=== PATIENT | male | born 1945 | race Caucasian/White ===

== ENCOUNTER 2017-10-02 21:54 | Emergency (ER) | payer MEDICARE, OTHER ==
[2017-10-02] MEDS ORDERED: Sodium Chloride 0.9% 1,000 ML IV ONE (22:27)
[2017-10-02] MEDS ORDERED: Metoprolol Tartrate 5 MG/5 ML SDV IVPUSH ONE (22:34)
[2017-10-02] MEDS ORDERED: Aspirin 81 MG Tab.Chew PO ONE (22:39)
[2017-10-02 22:52] LABS: CHLORIDE,CL 99 mmol/L (98-107); SODIUM,NA 138 mmol/L (136-145)
--- NOTE | 2017-10-02 23:10 | EDM.PDOC ---
ED HPI GENERAL MEDICAL PROBLEM - General Chief Complaint: Neuro Symptoms/Deficits Stated Complaint: fall, left side paralysis Time Seen by Provider: 10/02/17 21:56 Source of Information: Reports: Patient, Family History Limitations: Reports: No Limitations - History of Present Illness INITIAL COMMENTS - FREE TEXT/NARRATIVE: Patient found to be down on cement floor in basement by . Was down approximately 24 hours. Unable to move left side of body. Denies pain. Alert and oriented appropriately. Denies other changes. No history of stroke. Denies any significant past medical history. Does say that his BP has run above normal when checked but denies that it was significantly elevated. - Related Data Allergies Allergy/AdvReac Type Severity Reaction Status Date / Time No Known Allergies Allergy Verified 10/02/17 22:51 Past Medical History Cardiovascular History: Reports: Hypertension Social & Family History - Family History Family Medical History: Unobtainable ( recalls that patient's mother had COPD and "chest problems" and was on oxygen. Father had diabetes.) - Tobacco Use Smoking Status *Q: Never Smoker - Alcohol Use Alcohol Use History: No - Recreational Drug Use Recreational Drug Use: No Drug Use in Last 12 Months: No - Living Situation & Occupation Living situation: Reports: Occupation: Employed ED ROS GENERAL - Review of Systems Review Of Systems: See Below Constitutional: Reports: No Symptoms HEENT: Reports: No Symptoms Respiratory: Reports: No Symptoms Cardiovascular: Reports: No Symptoms GI/Abdominal: Reports: No Symptoms : Reports: No Symptoms Musculoskeletal: Reports: No Symptoms Skin: Reports: No Symptoms Neurological: Reports: Numbness (left side), Paresthesia (left side), Difficulty Walking, Weakness (left limbs). Denies: Dizziness, Headache, Trouble Speaking Psychiatric: Reports: No Symptoms Hematologic/Lymphatic: Reports: No Symptoms ED EXAM, NEURO - Physical Exam Exam: See Below Exam Limited By: Physical Impairment General Appearance: Alert, WD/WN, No Apparent Distress Eye Exam: Bilateral Eye: EOMI, PERRL Ears: Normal External Exam, Normal Canal Nose: No Blood. No: Nasal Swelling, Nasal Drainage Throat/Mouth: Normal Voice, No Airway Compromise, Other (Poor dentition, dry lips) Head Exam: Atraumatic, Normocephalic Neck: Normal Inspection, Supple, Non-Tender. No: Lymphadenopathy (L), Lymphadenopathy (R) Respiratory/Chest: No Respiratory Distress, Lungs Clear, Normal Breath Sounds, No Accessory Muscle Use, Chest Non-Tender Cardiovascular: Normal Peripheral Pulses, Regular Rate, Rhythm, No Edema, No Murmur GI/Abdominal: Soft, Non-Tender (Male) Exam: Normal Inspection Rectal (Males) Exam: Deferred Neurological: Alert, Normal Mood/Affect, Other (minimal movement noted left upper and lower limbs, also noted to have significantly decreased sensation on that same side. 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 ) Back Exam: Normal Inspection Extremities: Non-Tender, No Pedal Edema, Normal Capillary Refill Psychiatric: Normal Affect, Normal Mood Skin Exam: Warm, Dry, Intact, Normal Color EKG INTERPRETATION EKG Date: 10/02/17 Time: 22:31 Rhythm: NSR Rate (Beats/Min): [address] [employer]: Normal P-Wave: Present QRS: Normal ST-T: Other (no acute ST depression/elevation noted.) QT: Normal Comparison: NA - No Prior EKG Course - Orders/Labs/Meds Orders: Active Orders 24 hr Category Date Time Status Head wo Cont [CT] Stat Exams 10/02/17 21:55 Taken CBC WITH AUTO DIFF [HEME] Routine Lab 10/02/17 22:15 Received CBC WITH AUTO DIFF [HEME] Stat Lab 10/02/17 22:21 Ordered CK W CKMB [CHEM] Stat Lab 10/02/17 22:20 Ordered COMPREHENSIVE METABOLIC PN,CMP [CHEM] Routine Lab 10/02/17 22:15 Received COMPREHENSIVE METABOLIC PN,CMP [CHEM] Stat Lab 10/02/17 22:21 Ordered D-DIMER QUANTITATIVE [COAG] Stat Lab 10/02/17 22:20 Ordered INR,PT,PROTHROMBIN TIME [COAG] Routine Lab 10/02/17 22:15 Received INR,PT,PROTHROMBIN TIME [COAG] Stat Lab 10/02/17 22:20 Ordered MG [MAGNESIUM] [CHEM] Stat Lab 10/02/17 22:21 Ordered PROLACTIN [REF] Stat Lab 10/02/17 22:21 Ordered PTT,PARTIAL THROMBOPLSTIN TIME [COAG] Routine Lab 10/02/17 22:15 Received PTT,PARTIAL THROMBOPLSTIN TIME [COAG] Stat Lab 10/02/17 22:21 Ordered TROPONIN I [CHEM] Stat Lab 10/02/17 22:20 Ordered - Radiology Interpretation CT Results Date: 10/02/17 CT Results Time: 22:41 (Hemorrhagic stroke noted, right side) - Re-Assessments/Exams Free Text/Narrative Re-Assessment/Exam: 10/02/17 23:28 CT confirmed presence of hemorrhagic stroke. Call placed to [facility]. Patient accepted by from Neurosurgery. At present, plan is for patient to be admitted to ICU and no immediate surgery planned. Patient remained stable while in ER. IV Metoprolol given to help improve BP. WBC elevated as was glucose. SQ insulin given. CK and CKMB elevated, however patient was lying on floor for 24 hours prior to presentation. DDimer also elevated. Stroke scale score remained 11. Transfer to [facility] arranged for continuation of care. Departure - Departure Time of Disposition: 23:32 Disposition: DC/Tfer to Acute Hospital 02 Condition: Fair Clinical Impression: Cerebral hemorrhage - Discharge Information - My Orders Last 24 Hours: My Active Orders 10/02/17 21:55 Head wo Cont [CT] Stat 10/02/17 22:15 CBC WITH AUTO DIFF [HEME] Routine COMPREHENSIVE METABOLIC PN,CMP [CHEM] Routine INR,PT,PROTHROMBIN TIME [COAG] Routine PTT,PARTIAL THROMBOPLSTIN TIME [COAG] Routine 10/02/17 22:20 CK W CKMB [CHEM] Stat D-DIMER QUANTITATIVE [COAG] Stat INR,PT,PROTHROMBIN TIME [COAG] Stat TROPONIN I [CHEM] Stat 10/02/17 22:21 CBC WITH AUTO DIFF [HEME] Stat COMPREHENSIVE METABOLIC PN,CMP [CHEM] Stat MG [MAGNESIUM] [CHEM] Stat PROLACTIN [REF] Stat PTT,PARTIAL THROMBOPLSTIN TIME [COAG] Stat - Assessment/Plan Last 24 Hours: My Active Orders 10/02/17 21:55 Head wo Cont [CT] Stat 10/02/17 22:15 CBC WITH AUTO DIFF [HEME] Routine COMPREHENSIVE METABOLIC PN,CMP [CHEM] Routine INR,PT,PROTHROMBIN TIME [COAG] Routine PTT,PARTIAL THROMBOPLSTIN TIME [COAG] Routine 10/02/17 22:20 CK W CKMB [CHEM] Stat D-DIMER QUANTITATIVE [COAG] Stat INR,PT,PROTHROMBIN TIME [COAG] Stat TROPONIN I [CHEM] Stat 10/02/17 22:21 CBC WITH AUTO DIFF [HEME] Stat COMPREHENSIVE METABOLIC PN,CMP [CHEM] Stat MG [MAGNESIUM] [CHEM] Stat PROLACTIN [REF] Stat PTT,PARTIAL THROMBOPLSTIN TIME [COAG] Stat
[2017-10-02] MEDS ORDERED: Insulin Regular, Human 100 Units/ML 3 ML Vial SUBCUT ONE (23:20)
== END 2017-10-02 23:45 ==
LOC: LL.ED 21:54
DX: I61.9 Nontraumatic intracerebral hemorrhage, unspecified (principal); I10 Essential (primary) hypertension
CPT/HCPCS: 36415; 51702; 70450; 80053; 82550; 82553; 83735; 84146; 84484; 85025; 85379; 85610; 85730; 93010; 96361; 96372; 96374; 99285; J1815; J7030; J3490

== ENCOUNTER 2017-10-10 23:19 | Emergency (ER) | payer MEDICARE, OTHER ==
[2017-10-10] MEDS ORDERED: hydrALAZINE 50 MG Tab PO ONE (23:51)
[2017-10-11] MEDS ORDERED: Metoprolol Succinate 50 MG Tab.ER PO ONE (00:06)
--- NOTE | 2017-10-11 00:19 | EDM.PDOC ---
ED HPI GENERAL MEDICAL PROBLEM - General Chief Complaint: General Stated Complaint: Hypertension Time Seen by Provider: 10/10/17 23:43 Source of Information: Reports: Patient, Other (alf) History Limitations: Reports: No Limitations - History of Present Illness INITIAL COMMENTS - FREE TEXT/NARRATIVE: Patient sent here due to persistent elevated BP readings from [facility]. He was released from [facility] in [place] for recent hemorrhagic stroke (seen at our ER prior to transfer to [facility] for treatment of stroke) and transferred to [facility] for continued care and rehab. Patient's BP approached 190 systolic at [facility] prior to them having EMS transfer patient here. Patient denies headache/neuro changes. [facility] noted no neuro status changes. No new complaints. Patient was not on any medications prior to stroke. He is now on 3 BP medications, including Metoprolol Succinate ER, Norvasc, and Lisinopril. Additionally they had him on PRN IV Hydralazine at [facility] due to his BP being difficult to control. Call placed to [facility]. Norvasc dose increased from 5 to 10mg daily this morning prior to discharge. Normal labs yesterday. ROS negative for any acute changes. Patient has persistent left sided hemiplegia from CVA. - Related Data Allergies Allergy/AdvReac Type Severity Reaction Status Date / Time No Known Allergies Allergy Verified 10/11/17 00:31 Home Meds: Home Meds Hydrochlorothiazide 25 mg PO DAILY #30 tablet 10/11/17 [Rx] Lisinopril 40 mg PO DAILY 10/11/17 [History] Metoprolol Succinate 100 mg PO DAILY #30 tab.er.24h 10/11/17 [Rx] amLODIPine [Norvasc] 10 mg PO DAILY 10/11/17 [History] atorvaSTATin [Lipitor] 10 mg PO 1800 10/11/17 [History] glipiZIDE [Glucotrol] 5 mg PO ACBREAKFAST 10/11/17 [History] levETIRAcetam [Keppra] 500 mg PO BID 10/11/17 [History] metFORMIN HCl [Metformin HCl] 1,000 mg PO BID 10/11/17 [History] Past Medical History Cardiovascular History: Reports: Hypertension Neurological History: Reports: CVA Other Neuro History: 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 L sided paralysis/weakness/L facial droop Social & Family History - Family History Family Medical History: Unobtainable - Tobacco Use Smoking Status *Q: Never Smoker - Recreational Drug Use Recreational Drug Use: No Drug Use in Last 12 Months: No - Living Situation & Occupation Living situation: Reports: Occupation: Employed ED ROS GENERAL - Review of Systems Review Of Systems: ROS reveals no pertinent complaints other than HPI. ED EXAM, GENERAL - Physical Exam Exam: See Below Exam Limited By: No Limitations General Appearance: Alert, WD/WN, No Apparent Distress Eye Exam: Bilateral Eye: EOMI, PERRL Ears: Normal External Exam, Normal Canal Nose: No: Nasal Drainage Throat/Mouth: Normal Lips, Normal Voice, No Airway Compromise Head: Atraumatic Neck: Supple, Non-Tender Respiratory/Chest: No Respiratory Distress, Lungs Clear, Normal Breath Sounds, No Accessory Muscle Use, Chest Non-Tender Cardiovascular: Regular Rate, Rhythm, No Edema, No Murmur Peripheral Pulses: 3+: Radial (L), Radial (R) GI/Abdominal: Normal Bowel Sounds, Soft, Non-Tender, No Distention (Male) Exam: Deferred Rectal (Males) Exam: Deferred Back Exam: No: CVA Tenderness (L), CVA Tenderness (R) Extremities: Non-Tender, No Pedal Edema, Normal Capillary Refill Neurological: Alert, Oriented, Sensory/Motor Deficit (Left sided weakness s/p CVA) Psychiatric: Normal Affect, Normal Mood Skin Exam: Warm, Dry, Intact, Normal Color Course - Vital Signs Last Recorded V/S: Last Vital Signs Temp 37.3 C 10/10/17 23:21 Pulse 73 10/11/17 02:04 Resp 16 10/11/17 02:04 BP 175/82 H 10/11/17 02:04 Pulse Ox 98 10/11/17 02:04 - Orders/Labs/Meds Labs: Laboratory Tests 10/11/17 10/11/17 10/11/17 Range/Units 00:25 00:25 00:45 WBC 13.9 H (4.0-10.2) K/uL RBC 4.55 (4.33-5.41) M/uL Hgb 13.4 D (13.1-16.8) g/dL Hct 38.6 L (39.0-49.0) % MCV 84.8 (84.0-98.0) fL MCH 29.5 (28.2-33.3) pg MCHC 34.7 (31.7-36.0) g/dL RDW 12.3 (11.2-14.1) % Plt Count 209 (150-350) K/uL Neut % (Auto) 82.1 H (45.0-80.0) % Lymph % (Auto) 8.5 L (10.0-50.0) % [place] % (Auto) 6.5 (2.0-14.0) % Eos % (Auto) 2.5 (0.0-5.0) % Baso % (Auto) 0.4 (0.0-2.0) % Neut # (Auto) 11.42 H (1.40-7.00) K/uL Lymph # (Auto) 1.18 (0.50-3.50) K/uL [place] # (Auto) 0.90 (0.00-1.00) K/uL Eos # (Auto) 0.35 (0.00-0.50) K/uL Baso # (Auto) 0.06 (0.00-0.20) K/uL Sodium 133 L (136-145) mmol/L Potassium 4.3 (3.5-5.1) mmol/L Chloride 100 (98-107) mmol/L Carbon Dioxide 24.0 (21.0-32.0) mmol/L BUN 18 (7-18) mg/dL Creatinine 0.59 (0.51-1.17) mg/dL Est Cr Clr Drug Dosing 120.34 mL/min Estimated GFR (MDRD) > 60 mL/min Glucose 182 H (74-106) mg/dL Calcium 8.5 (8.5-10.1) mg/dL Specimen Type Urinblad Urine Color Yellow Urine Appearance Clear Urine pH 7.5 (5.0-9.0) Ur Specific [place] 1.020 (1.005-1.030) Urine Protein Trace H (NEGATIVE) mg/dL Urine Glucose (UA) 500 H (NEGATIVE) mg/dL Urine Ketones 15 H (NEGATIVE) mg/dL Urine Occult Blood Negative (NEGATIVE) Urine Nitrite Negative (NEGATIVE) Urine Bilirubin Negative (NEGATIVE) Urine Urobilinogen 2.0 H (0.2-1.0) E.U./dL Ur Leukocyte Esterase Negative (NEGATIVE) Urine RBC Not seen /HPF Urine WBC 0-5 /HPF Ur Epithelial Cells Not seen /LPF Urine Bacteria Not seen (NONE TO FEW) /HPF Meds: Medications Discontinued Medications Generic Name Dose Route Start Last Admin Trade Name Cornel PRN Reason Stop Dose Admin Hydralazine HCl 25 mg 10/10/17 23:51 10/10/17 23:58 Apresoline PO 10/10/17 23:52 25 mg ONETIME ONE Administration Metoprolol Succinate 50 mg 10/11/17 00:06 10/11/17 00:13 Toprol Xl PO 10/11/17 00:07 50 mg ONETIME ONE Administration - Re-Assessments/Exams Free Text/Narrative Re-Assessment/Exam: 10/11/17 00:22 Call placed to [facility]. Review of patient's recent visit hospitalization at [facility] showed persistent elevated blood pressures despite multiple antihypertensives. Patient's pattern has been to elevate 170-180/80-90 in the evenings, including last night. , Hospitalist at [facility], was contacted and recommended adding additional Metoprolol and small dose HCTZ to regimen, as patient is maxed out on the two other antihypertensive medications. PO Hydralazine given, as well as additional dose Metoprolol Succinate. CBC/Chem repeated. WBC continues to be elevated at 13, however improved from last week when initially diagnosed with CVA. No new contributor to elevated WBC noted. Sodium mildly decreased. Glucose 182. UA requested. No evidence of UTI. Patient observed in the ER for BP response. It is anticipated that he will return to [facility] once BP has improved. The above recommended changes will be made. [facility] to [facility]. Departure - Departure Time of Disposition: 02:00 Disposition: DC/Tfer to [facility] 03 Clinical Impression: Hyponatremia, Cerebral hemorrhage Hypertension Qualifiers: Hypertension type: unspecified Qualified Code(s): I10 - Essential (primary) hypertension - Discharge Information Prescriptions: Hydrochlorothiazide 25 mg PO DAILY #30 tablet Metoprolol Succinate 100 mg PO DAILY #30 tab.er.24h Instructions: Hydralazine tablets, Metoprolol tablets Referrals: Luz Le PA [Primary Care Provider] - Forms: ED Department Discharge Additional Instructions: Per discussion with from [facility], we will increase Metoprolol to 100mg daily, and add 25mg of HCTZ daily. [facility] is to continue to observe blood pressures closely. Recommend BP checks TID at 8am, 2pm, and 8pm for now to watch for trends. Follow up with [facility] when they come in to round. Otherwise follow up as needed.
[2017-10-11 00:44] LABS: CHLORIDE,CL 100 mmol/L (98-107); SODIUM,NA 133 mmol/L (136-145)
== END 2017-10-11 02:15 ==
LOC: LL.ED 23:19
DX: I61.9 Nontraumatic intracerebral hemorrhage, unspecified (principal); I69.354 Hemiplegia and hemiparesis following cerebral infarction affecting left non-dominant side; I10 Essential (primary) hypertension; E87.1 Hypo-osmolality and hyponatremia; Z79.899 Other long term (current) drug therapy
CPT/HCPCS: 36415; 80048; 81001; 85025; 99285; A9270

== ENCOUNTER 2020-03-08 17:38 | Emergency (ER) | payer MEDICARE, OTHER ==
--- NOTE | 2020-03-08 18:41 | EDM.PDOC ---
ED HPI GENERAL MEDICAL PROBLEM - General Chief Complaint: General Stated Complaint: pain, fall Time Seen by Provider: 03/08/20 17:53 Source of Information: Reports: Patient History Limitations: Reports: No Limitations - History of Present Illness INITIAL COMMENTS - FREE TEXT/NARRATIVE: Patient fell onto left side and presents with left hip pain. Hx left sided weakness s/p 2017 hemorrhagic stroke. Brought by private vehicle. States that he was trying to get a kleenex off the end of the bed when he lost balance and fell. Denies hitting head. Only pain complaint is left hip area. Has numbness /neuropathic pain since stroke left arm/leg. Denies any acute pain left arm/ ribs. No neck pain. No headache. No other acute changes/injuries/complaints. Left Upper Leg Pain Score (Numeric/FACES): 7 - Related Data Allergies Allergy/AdvReac Type Severity Reaction Status Date / Time No Known Allergies Allergy Verified 03/08/20 17:40 Home Meds: Home Meds Hydrochlorothiazide 25 mg PO DAILY #30 tablet 10/11/17 [Rx] Lisinopril 20 mg PO DAILY 10/11/17 [History] Metoprolol Succinate 100 mg PO DAILY #30 tab.er.24h 10/11/17 [Rx] amLODIPine [Norvasc] 5 mg PO DAILY 10/11/17 [History] atorvaSTATin [Lipitor] 10 mg PO 1800 10/11/17 [History] glipiZIDE [Glucotrol] 5 mg PO ACBREAKFAST 10/11/17 [History] levETIRAcetam [Keppra] 500 mg PO BID 10/11/17 [History] metFORMIN HCl [Metformin HCl] 1,000 mg PO BID 10/11/17 [History] Past Medical History Cardiovascular History: Reports: Hypertension Neurological History: Reports: CVA Other Neuro History: 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 L sided paralysis/weakness/L facial droop Endocrine/Metabolic History: Reports: Diabetes, Type II Social & Family History - Family History Family Medical History: Unobtainable - Tobacco Use Smoking Status *Q: Never Smoker - Caffeine Use Caffeine Use: Reports: Soda - Living Situation & Occupation Living situation: Reports: Occupation: Employed ED ROS GENERAL - Review of Systems Review Of Systems: Comprehensive ROS is negative, except as noted in HPI. ED EXAM, GENERAL - Physical Exam Exam: See Below Exam Limited By: No Limitations General Appearance: Alert, WD/WN, No Apparent Distress Eye Exam: Bilateral Eye: Normal Inspection Ears: Hearing Grossly Normal Throat/Mouth: Normal Lips, Normal Voice, No Airway Compromise Head: Atraumatic, Normocephalic Neck: Supple, Non-Tender Respiratory/Chest: No Respiratory Distress, Lungs Clear, Normal Breath Sounds, No Accessory Muscle Use, Chest Non-Tender Cardiovascular: Regular Rate, Rhythm, No Edema, No Murmur GI/Abdominal: Normal Bowel Sounds, Soft, Non-Tender, No Distention (Male) Exam: Deferred Rectal (Males) Exam: Deferred Back Exam: No: Paraspinal Tenderness, Vertebral Tenderness Extremities: Normal Capillary Refill, Other (tenderness proximal femur. Pelvis stable/nontender. No other focal limb tenderness with palpation. ). No: Mottled, Pallor, Redness Neurological: Alert, Oriented, Normal Cognition, Other (left sided weakness( chronic)) Psychiatric: Normal Affect, Normal Mood Skin Exam: Warm, Dry, Intact, Normal Color Course - Vital Signs Last Recorded V/S: Last Vital Signs Temp 36.6 C 03/08/20 17:41 Pulse 72 03/08/20 17:41 Resp 20 03/08/20 17:41 BP 136/59 L 03/08/20 17:41 Pulse Ox 100 03/08/20 17:41 - Orders/Labs/Meds Orders: Active Orders 24 hr Category Date Time Status Hip Min 2V or 3V w Pelvis Lt [CR] Stat Exams 03/08/20 17:40 Taken - Re-Assessments/Exams Free Text/Narrative Re-Assessment/Exam: 03/08/20 18:42 Xray taken of left hip/pelvis confirmed femoral neck fracture. Call placed to [facility] and patient accepted for transfer by . Ortho will evaluate patient at [facility] and continue treatment. Patient declined pain medication. Departure - Departure Time of Disposition: 18:45 Disposition: DC/Tfer to Acute Hospital 02 Condition: Good Clinical Impression: Femur fracture, left Qualifiers: Encounter type: initial encounter Femur location: neck, unspecified portion Fracture type: closed Qualified Code(s): S72.002A - Fracture of unspecified part of neck of left femur, initial encounter for closed fracture - Discharge Information *PRESCRIPTION DRUG MONITORING PROGRAM REVIEWED*: Not Applicable *COPY OF PRESCRIPTION DRUG MONITORING REPORT IN PATIENT [place]: Not Applicable Referrals: PCP,None [Primary Care Provider] - Sepsis Event Note - Evaluation Sepsis Screening Result: No Definite Risk - Focused Exam Vital Signs: Vital Signs Temp Pulse Resp BP Pulse Ox 03/08/20 17:41 36.6 C 72 20 136/59 L 100 Date Exam was Performed: 03/08/20 Time Exam was Performed: 18:36 - My Orders Last 24 Hours: My Active Orders 03/08/20 17:40 Hip Min 2V or 3V w Pelvis Lt [CR] Stat - Assessment/Plan Last 24 Hours: My Active Orders 03/08/20 17:40 Hip Min 2V or 3V w Pelvis Lt [CR] Stat
== END 2020-03-08 19:15 ==
LOC: LL.ED 17:38
DX: S72.145A Nondisplaced intertrochanteric fracture of left femur, initial encounter for closed fracture (principal); I10 Essential (primary) hypertension; E11.9 Type 2 diabetes mellitus without complications; Z86.73 Personal history of transient ischemic attack (TIA), and cerebral infarction without residual deficits; Z79.84 Long term (current) use of oral hypoglycemic drugs; Z79.899 Other long term (current) drug therapy; W18.30XA Fall on same level, unspecified, initial encounter; Y92.009 Unspecified place in unspecified non-institutional (private) residence as the place of occurrence of the external cause
CPT/HCPCS: 99284; 99284-25

== ENCOUNTER 2020-03-14 13:08 | Inpatient (IN) | payer MEDICARE, OTHER ==
[2020-03-14] MEDS ORDERED: Ondansetron 4 MG Tab.DIS PO PRN (16:34)
[2020-03-14] MEDS ORDERED: Temazepam 15 MG Cap PO PRN (16:34)
[2020-03-14] MEDS ORDERED: Bisacodyl 5 MG Tab PO PRN (16:34)
--- NOTE | 2020-03-14 17:09 | PCM.HP.2 ---
H&P History of Present Illness - General Date of Service: 03/14/20 Admit Problem/Dx: Admission Diagnosis/Problem Admission Diagnosis/Problem Weakness Source of Information: Patient, Other ([facility] on 03/11/20 with additional transfer records from 03/14/20). No: Old Records (No [facility] records available) History Limitations: Reports: No Limitations - History of Present Illness Initial Comments - Free Text/Narative: The patient was brought to the swing bed by transport vehicle from [facility] in [place] for initiation of PT and OT secondary to recent left hip fracture, which did require an ORIF on 03/09/20. His postoperative course was complicated by postoperative anemia with 1 unit of packed red blood cells transfused on 03/11.. The patient denies any chest pain/pressure, heart flutter, dizziness, orthostasis, orthopnea, diaphoresis, paresthesias, recent decreased exercise tolerance, or any other anginal-type symptoms. No recent history of abdominal pain, heartburn, nausea, diarrhea, melena, gross hematochezia, or any food intolerance, including fatty foods, etc.. He denies any gross hematuria, colic, or other UTI symptoms. He does complain of some intermittent mild left hip pain while standing with no history of fall after his above surgery. His arthritis is otherwise stable. The patient also denies any recent fever, cough, wheezing, dyspnea, etc.. No history of recent headaches, visual changes, diplopia, change in mental status, or other change in neurological status with stable left hemiparesis. Onset of Symptoms: Reports: Sudden Symptom Onset Date: 03/08/20 Duration of Symptoms: Reports: Improving Location: Reports: Lower Extremity, Left. Denies: Head, Face, Neck, Chest, Abdomen, Back, Pelvis, Upper Extremity, Left, Upper Extremity, Right, Radiates to Quality: Reports: Ache, Same as Previous Episode Severity: Mild Improves with: Reports: Rest Worsens with: Reports: Movement Context: Reports: Trauma (Fall on with resulting hip fracture) Associated Symptoms: Reports: Weakness (Stable left sided). Denies: Confusion, Chest Pain, Cough, Diaphoresis, Fever/Chills, Headaches, Loss of Appetite, Malaise, Nausea/Vomiting, Rash, Seizure, Shortness of Breath, Syncope - Related Data Allergies/Adverse Reactions: Allergies Allergy/AdvReac Type Severity Reaction Status Date / Time No Known Allergies Allergy Verified 03/14/20 13:25 Home Medications: Home Meds amLODIPine [Norvasc] 5 mg PO DAILY 10/11/17 [History] atorvaSTATin [Lipitor] 10 mg PO 1800 10/11/17 [History] glipiZIDE [Glucotrol] 5 mg PO ACBREAKFAST 10/11/17 [History] levETIRAcetam [Keppra] 500 mg PO BID 10/11/17 [History] Acetaminophen 500 mg PO QID 03/14/20 [History] Lisinopril [Zestril] 10 mg PO BID 03/14/20 [History] Metoprolol Succinate 50 mg PO DAILY 03/14/20 [History] Multivitamin with Minerals [Multivitamins with Minerals] 1 each PO DAILY [History] Rivaroxaban [Xarelto] 10 mg PO DAILY 03/14/20 [History] Past Medical History HEENT History: Reports: Impaired Vision, Other (See Below). Denies: Allergic Rhinitis, Cataract, Glaucoma, Hard of Hearing, Macular Degeneration, Otitis Media, Retinal Detachment Other HEENT History: Patient wears reading glasses. Despite previous medical records he denies any previous left eye blindness after injury in [place]. Cardiovascular History: Reports: Aneurysm, High Cholesterol, Hypertension, PVD, Other (See Below). Denies: Afib, Arrhythmia, Blood Clots/VTE/DVT, CAD, Cardiomyopathy, Heart Failure, Heart Murmur, OK, Syncope Other Cardiovascular History: Possible cerebral aneurysm as below. Respiratory History: Reports: Intubation, Previous, Other (See Below). Denies: Asthma, Bronchitis, Recurrent, COPD, Intubation, Difficult, PE, Pneumothorax, Pulmonary Fibrosis, Sleep Apnea, TB Other Respiratory History: Benign bilateral pulmonary granulomas. Gastrointestinal History: Reports: GERD. Denies: Bowel Obstruction, Celiac Disease, Cholelithiasis, Chronic Constipation, Chronic Diarrhea, Colon Polyp, Fatty Liver, Fecal Incontinence, Gastritis, GI Bleed, Hepatitis, Hiatal Hernia, Irritable Bowel Syndrome, Jaundice, Pancreatitis, PUD Genitourinary History: Reports: BPH, Chronic Renal Insuffiency. Denies: Acute Renal Failure, Renal Calculus, Retention, Urinary, STD, Urinary Incontinence, UTI, Recurrent Musculoskeletal History: Reports: Arthritis, Fracture, Osteoarthritis, Other ( See Below). Denies: Amputation, Back Pain, Chronic, Gout, Neck Pain, Chronic, RA, SLE Other Musculoskeletal History: Proximal left femoral fracture on 03/08/20 requiring surgery as below. Neurological History: Reports: Cerebral Aneurysms, CVA, Seizure. 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 Source of cerebral bleed? Aneurysm. Recurrent falls. Psychiatric History: Denies: Abuse, Victim of, ADD, ADHD, Addiction, Anxiety, Dementia, Depression, Psych Hospitalization(s), PTSD, Suicide Attempt, Suicidal Ideation Endocrine/Metabolic History: Reports: Diabetes, Type II, Other (See Below). Denies: Diabetes, Type I, Diabetes Mellitus, Type 3c, Hypothyroidism, IDDM Other Endocrine/Metabolic History: Hyponatremia, hypoalbuminemia. Hematologic History: Reports: Anemia, Blood Transfusion(s), Other (See Below) Other Hematologic History: Postoperative anemia in February 2020 with 1 unit of packed red blood cells transfused on 03/11/20. Immunologic History: Reports: None. Denies: AIDS, SLE Oncologic (Cancer) History: Reports: None. Denies: Basal Cell Carcinoma, Colon , Hodgkin's Lymphoma, Leukemia, Lymphoma, Malignant Melanoma, Non-Hodgkin's Lymphoma, Prostate, Squamous Cell Carcinoma Dermatologic History: Reports: None. Denies: Eczema, Psoriasis - Infectious Disease History Infectious Disease History: Reports: Chicken Pox, Mumps, Shingles (Lower abdominal in 2018). Denies: C-Difficile, Measles, Meningitis, Mononucleosis, MRSA, Novel Coronavirus, Pertussis (Whooping Cough), Rheumatic Fever, Scarlet Fever, TB, VRE - Past Surgical History Head Surgeries/Procedures: Reports: None HEENT Surgical History: Reports: Oral Surgery, Other (See Below). Denies: Adenoidectomy, Cataract Surgery, Detached Retina, Eye Surgery, Myringotomy w Tube(s), Naso-Sinus Surgery, Tonsillectomy Other HEENT Surgeries/Procedures: Multiple teeth extractions Cardiovascular Surgical History: Reports: None. Denies: Varicose Respiratory Surgical History: Reports: None. Denies: Thoracentesis GI Surgical History: Reports: None. Denies: Appendectomy, Cholecystectomy, Colonoscopy, EGD, Hernia, Abdominal, Hernia, Inguinal, Hernia Repair/Other, Polypectomy Male Surgical History: Reports: Circumcision, Other (See Below). Denies: TURP-Transurethral Resection of Prostate, Vasectomy Other Male Surgeries/Procedures: Circumcision as an . Endocrine Surgical History: Reports: None. Denies: Thyroid Biopsy Neurological Surgical History: Reports: None. Denies: C-Spine, Discectomy, Laminectomy, Lumbar Spine, Sacral Spine, Spinal Fusion, Thoracic Spine, Vertebroplasty Musculoskeletal Surgical History: Reports: ORIF, Other (See Below). Denies: Arthroscopic Knee, Arthroscopic Procedure, Carpal Tunnel, Ganglion Cyst, Joint Replacement, Shoulder Replacement, Shoulder Surgery Other Musculoskeletal Surgeries/Procedures:: ORIF of the left hip on 03/09/20. Oncologic Surgical History: Reports: None Dermatological Surgical History: Reports: None - Past Imaging History Past Imaging History: Reports: CAT Scan (CT scan of the head on 11/01/17, 10/03/17 , and 10/02/17.), Swallow Study (10/24/17.), Ultrasound (Renal ultrasound on 03/11.) Social & Family History - Family History HEENT: Reports: None. Denies: Glaucoma, Macular Degeneration, Retinal Detachment Cardiac: Reports: None. Denies: Afib, Aneurysm, Arrhythmia, Blood Clots/VTE/DVT , CAD, Heart Failure, Heart Murmur, High Cholesterol, Hypertension, OK, PVD/COD , Syncope Respiratory: Reports: None, COPD, Other (See Below). Denies: Asthma, PE, Pneumothorax, Sleep Apnea Other Respiratory Family Hisory: Mother with fatal COPD at age 87 with history of tobacco use. GI: Reports: None. Denies: Cholelithiasis, Colon Polyps, GERD, GI bleed, Inflammatory Bowel Disease, Irritable Bowel Syndrome, PUD : Reports: None. Denies: Renal Calculus, Renal Disease/Insufficiency OBGYN: Reports: None Musculoskeletal: Reports: None. Denies: Arthritis, RA, SLE Neurological: Reports: Alzheimers Disease, Dementia, Other (See Below). Denies : Migraines, MS, Parkinson's, Seizure, TIA Other Neurological Family History: Father with organic brain syndrome. Psychiatric: Reports: None. Denies: Abuse, Victim of, ADD, ADHD, Anxiety, Depression, Psych Hospitalization(s), PTSD, Schizophrenia, Suicide Attempt Endocrine/Metabolic: Reports: Diabetes, type II, Other (See Below). Denies: Diabetes, Type I, Diabetes Mellitus, Type 3c, Hypothyroidism, IDDM Other Endocrine/Metabolic Family History: Father with diabetes mellitus. Hematologic: Reports: None. Denies: Anemia, Transfusion Reaction Immunologic: Reports: None. Denies: AIDS, HIV, SLE Dermatologic: Reports: None. Denies: Eczema, Psoriasis Oncologic: Reports: None. Denies: Colon, Hodgkin's Lymphoma, Leukemia, Lymphoma , Non-Hodgkin's Lymphoma, Prostate, Skin - Tobacco Use Smoking Status *Q: Never Smoker Tobacco Use Within Last Twelve Months: No Years of Tobacco use: 0 Used Tobacco, but Quit: No Smoking Cessation Information Provided To Patient: No Second Hand Smoke Exposure: No Source of Second Hand Smoke Exposure: smoked previously however stopped secondary to her COPD with no current tobacco smoke exposure Second Hand Smoke Education Provided: No - Caffeine Use Caffeine Use: Reports: Soda (1 soda per day). Denies: Coffee, Energy Drinks, Tea - Alcohol Use Alcohol Use History: No Days Per Week of Alcohol Use: 0 Number of Drinks Per Day: 0 Number of Drinks Per Day Comment: No previous DWIs, problems with alcohol abuse , etc. 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 Exam - Exam Exam: See Below - Exam Quality Assessment: DVT Prophylaxis (Current Xarelto). No: Supplemental Oxygen General: Alert, Oriented, Cooperative HEENT: Conjunctiva Clear, EACs Clear, EOMI, Hearing Intact, Mucosa Moist & [place] , Nares Patent, Normal Nasal Septum, Posterior Pharynx Clear, Pupils Equal, Pupils Reactive, TMs Clear, PERRLA. No: Glasses Neck: Supple, Trachea Midline, Carotid Bruit (Mild bilateral carotid bruits). No: Lymphadenopathy, Thyromegaly Lungs: Normal Respiratory Effort, Rales (Mild bilateral basilar). No: Rhonchi, Rub, Wheezing Cardiovascular: Regular Rate, Regular Rhythm, Normal S1, Normal S2. No: Systolic Murmur, Diastolic Murmur, Rubs, Gallop/S3, Gallop/S4 GI/Abdominal Exam: Normal Bowel Sounds, Soft, Non-Tender, No Organomegaly, No Distention, No Abnormal Bruit, No Mass, Pelvis Stable. No: Guarding (Male) Exam: Deferred Rectal (Males) Exam: Deferred Back Exam: Normal Inspection, Full Range of Motion. No: CVA Tenderness (L), CVA Tenderness (R), Muscle Spasm Extremities: Pedal Edema (+1 left-sided pedal edema), Leg Pain (Mild in left hip with no instability), Limited Range of Motion (Left hip secondary to recent surgery). No: Joint Swelling, Carlos's Sign Peripheral Pulses: 2+: Radial (L), Radial (R), Dorsalis Pedis (L), Dorsalis Pedis (R) Skin: Ecchymosis (Operative site), Wound, Incision (Healing well) Neurological: Other (Stable left-sided hemiparesis by patient history) Neuro Extensive - Mental Status: Alert, Oriented x3, Normal Mood/Affect, Normal Cognition Psychiatric: Alert, Normal Affect, Normal Mood. No: Agitated, Hallucinations, Withdrawal Symptoms - Problem List (1) Femur fracture, left SNOMED Code(s): 31000118, [id number] ICD Code: S72.92XA - UNSP FRACTURE OF LEFT FEMUR, INIT ENCNTR FOR CLOSED FRACTURE Status: Acute Priority: High Current Visit: Yes Onset Date: Problem Details: Note ORIF on 03/09/20 with patient admitted to swing bed for PT, OT, strengthening, etc.. Postoperative course complicated by anemia with blood transfusion on 03/11 as above. Qualifiers: Encounter type: initial encounter Femur location: neck, unspecified portion Fracture type: closed Qualified Code(s): S72.002A - Fracture of unspecified part of neck of left femur, initial encounter for closed fracture (2) Cerebral hemorrhage SNOMED Code(s): 059769681 ICD Code: I61.9 - NONTRAUMATIC INTRACEREBRAL HEMORRHAGE, UNSPECIFIED Status : Chronic Priority: Medium Current Visit: Yes Onset Date: 10/02/17 Problem Details: Stable left hemiparesis, dysphagia, etc. by patient history with no recent seizures, etc. (3) Hypertension SNOMED Code(s): 94207246 ICD Code: I10 - ESSENTIAL (PRIMARY) HYPERTENSION Status: Chronic Priority : Medium Current Visit: Yes Problem Details: Stable by history Qualifiers: Hypertension type: essential hypertension Qualified Code(s): I10 - Essential (primary) hypertension (4) Hyponatremia SNOMED Code(s): 93921817 ICD Code: E87.1 - HYPO-OSMOLALITY AND HYPONATREMIA Status: Acute Priority : Medium Current Visit: Yes Onset Date: ~03/11/20 Problem Details: Lab work in the a.m. (5) Renal insufficiency SNOMED Code(s): 946894374, 864426444 ICD Code: N28.9 - DISORDER OF KIDNEY AND URETER, UNSPECIFIED Status: Chronic Priority: Medium Current Visit: Yes Problem Details: Labs in the a.m. (6) Seizure disorder SNOMED Code(s): 206591489 ICD Code: G40.909 - EPILEPSY, UNSP, NOT INTRACTABLE, WITHOUT STATUS EPILEPTICUS Status: Chronic Priority: Medium Current Visit: Yes Problem Details: As above (7) Osteoarthritis SNOMED Code(s): 213977715 ICD Code: M19.90 - UNSPECIFIED OSTEOARTHRITIS, UNSPECIFIED SITE Status: Chronic Priority: Medium Current Visit: Yes Problem Details: Otherwise stable by history Qualifiers: Osteoarthritis location: multiple joints Osteoarthritis type: primary Qualified Code(s): M89.49 - Other hypertrophic osteoarthropathy, multiple sites (8) Peptic reflux disease SNOMED Code(s): 375423712 ICD Code: K21.9 - GASTRO-ESOPHAGEAL REFLUX DISEASE WITHOUT ESOPHAGITIS Status: Chronic Priority: Medium Current Visit: Yes Problem Details: Stable by history Problem List Initiated/Reviewed/Updated: Yes Orders Last 24hrs: Active Orders 24 hr Category Date Time Status Patient Status [ADT] Routine ADT 03/14/20 16:34 Ordered Blood Glucose Check, Bedside [RC] BIDAC Care 03/14/20 16:34 Ordered Communication Order [RC] ROUTINE Care 03/14/20 16:44 Ordered EKG Documentation Completion [RC] ASDIRECTED Care 03/15/20 05:11 Ordered May Shower [RC] ASDIRECTED Care 03/14/20 16:34 Ordered Oxygen Therapy [RC] ASDIRECTED Care 03/14/20 16:46 Ordered Oxygen Therapy [RC] PRN Care 03/14/20 16:34 Ordered Pulse Oximetry [RC] ASDIRECTED Care 03/14/20 16:46 Ordered Up With Assistance [RC] ASDIRECTED Care 03/14/20 16:34 Ordered VTE/DVT Education [RC] PER UNIT ROUTINE Care 03/14/20 16:34 Ordered Vital Signs [RC] PER UNIT ROUTINE Care 03/14/20 16:34 Ordered Consult to Case Management/Aerodynamics Teacher [CONS] Cons 03/14/20 16:34 Ordered Routine OT Evaluation and Treatment [CONS] Routine Cons 03/14/20 16:34 Ordered PT Evaluation and Treatment [CONS] Routine Cons 03/14/20 16:34 Ordered [place] [employer] Diet [DIET] Diet 03/14/20 Dinner Ordered Chest 2V [CR] Routine Exams 03/15/20 05:11 Ordered CBC WITH AUTO DIFF [HEME] Routine Lab 03/15/20 05:11 Ordered COMPREHENSIVE METABOLIC PN,CMP [CHEM] Routine Lab 03/15/20 05:11 Ordered GLYCOSYLATED HEMOGLOBIN,HGBA1C [CHEM] Routine Lab 03/15/20 05:11 Ordered INR,PT,PROTHROMBIN TIME [COAG] Routine Lab 03/15/20 05:11 Ordered MAGNESIUM [CHEM] Routine Lab 03/15/20 05:11 Ordered PTT,PARTIAL THROMBOPLSTIN TIME [COAG] Routine Lab 03/15/20 05:11 Ordered TSH ULTRASENSITIVE [CHEM] Routine Lab 03/15/20 05:11 Ordered URIC ACID [CHEM] Routine Lab 03/15/20 05:11 Ordered VITAMIN B12 [CHEM] Routine Lab 03/15/20 05:11 Ordered Acetaminophen [Tylenol Extra Strength] Med 03/14/20 20:00 Ordered 500 mg PO QID Metoprolol Succinate [Toprol XL] Med 03/15/20 08:00 Ordered 50 mg PO DAILY Multivitamin with Minerals [Multivitamins with Minerals Med 03/15/20 08:00 Ordered ] 1 each PO DAILY Ondansetron [Zofran ODT] Med 03/14/20 16:34 Ordered 4 mg PO Q6H PRN Rivaroxaban [Xarelto] Med 03/15/20 08:00 Ordered 10 mg PO DAILY Temazepam [Restoril] Med 03/14/20 16:34 Ordered 15 mg PO BEDTIME PRN amLODIPine [Norvasc] Med 03/15/20 08:00 Ordered 5 mg PO DAILY atorvaSTATin [Lipitor] Med 03/14/20 18:00 Ordered 10 mg PO 1800 bisacodyL [Dulcolax] Med 03/14/20 16:34 Ordered 5 mg PO DAILY PRN glipiZIDE [Glucotrol] Med 03/15/20 07:30 Ordered 5 mg PO ACBREAKFAST levETIRAcetam [Keppra] Med 03/14/20 18:00 Ordered 500 mg PO BID lisinopriL [Prinivil] Med 03/14/20 18:00 Ordered 10 mg PO BID Obtain Past Medical Record [OM.PC] Routine Oth 03/14/20 16:46 Ordered Patient May [OM.PC] Click To Edit Oth 03/14/20 16:34 Ordered Resuscitation Status Routine Resus Stat 03/14/20 16:34 Ordered EKG 12 Lead [EK] Routine Ther 03/15/20 05:11 Ordered Medication Orders Acetaminophen (Tylenol Extra Strength) 500 mg PO QID DRAGAN Amlodipine Besylate (Norvasc) 5 mg PO DAILY DRAGAN Atorvastatin Calcium (Lipitor) 10 mg PO DAILY@1800 DRAGAN Bisacodyl (Dulcolax) 5 mg PO DAILY PRN PRN Reason: Constipation Glipizide (Glucotrol) 5 mg PO ACBREAKFAST DRAGAN Levetiracetam (Keppra) 500 mg PO BID DRAGAN Lisinopril (Prinivil) 10 mg PO BID DRAGAN Metoprolol Succinate (Toprol Xl) 50 mg PO DAILY DRAGAN Multivitamins/Minerals/Vitamin C (Tab-A-Varun) 1 tab PO DAILY DRAGAN Ondansetron HCl (Zofran Odt) 4 mg PO Q6H PRN PRN Reason: Nausea/Vomiting Rivaroxaban (Xarelto) 10 mg PO DAILY DRAGAN Temazepam (Restoril) 15 mg PO BEDTIME PRN PRN Reason: Sleep Assessment/Plan Comment:: As above. Extensive precautions were given to the patient, who is in agreement with the treatment plan. PT and OT have been ordered with continued swing bed care until the patient will be released to home on home health per their instructions. Update blood work, EKG, and chest x-ray in the a.m. - Mortality Measure Prognosis:: Good
[2020-03-14] MEDS: Lisinopril 20 MG Tab PO SCH (18:18)
[2020-03-14] MEDS: atorvaSTATin 10 MG Tab PO SCH (18:18)
[2020-03-14] MEDS: levETIRAcetam 500 MG Tab PO SCH (18:18)
[2020-03-14] MEDS: Acetaminophen 500 MG Tab PO SCH (19:57)
[2020-03-15] MEDS: levETIRAcetam 500 MG Tab PO SCH ×2 (07:35→17:23)
[2020-03-15] MEDS: Metoprolol Succinate 50 MG Tab.ER PO SCH (07:35)
[2020-03-15] MEDS: Multivitamin Tab PO SCH (07:35)
[2020-03-15] MEDS: glipiZIDE 5 MG Tab PO SCH (07:36)
[2020-03-15] MEDS: Lisinopril 20 MG Tab PO SCH ×2 (07:36→17:23)
[2020-03-15] MEDS: amLODIPine 5 MG Tab PO SCH (07:36)
[2020-03-15] MEDS: Acetaminophen 500 MG Tab PO SCH ×4 (07:37→20:36)
[2020-03-15 07:42] LABS: HEMOGLOBIN A1C 5.4 % (4.3-5.7)
[2020-03-15 07:56] LABS: PTT,PARTIAL THROMBOPLSTIN TIME 25.7 SEC (24.5-32.8)
--- NOTE | 2020-03-15 09:23 | PCM.SN ---
- Free Text/Narrative Note: Review of patient's EKG, chest x-ray, and blood work this morning. Blood work shows a stable decreased hemoglobin of 8.4 with other pertinent findings including a BUN of 32, creatinine 1.48, calcium 8.2, total protein of 5.9, and albumin of 2.6. Vitamin B-12 and TSH are normal. Chest x-ray, portable, shows evidence of a moderately elevated right hemidiaphragm with additional moderate COPD changes but no pneumothorax, pulmonary infiltrates, cardiomegaly or CHF. Possible mild pulmonary hypertension. EKG showed no evidence of acute ischemic changes with mild sinus bradycardia 54 , AL interval of 0.18 seconds, QRS interval of 0.09 seconds with mild biphasic P waves. A neutral cardiac axis was present. Nonspecific repolarization changes. TeleHealth - TeleHealth Patient Service Facility: [facility] Informed Consent: Telemedicine Audio/Visual Informed Consent: The risks, benefits, and alternatives to the telehealth visit were explained to the patient and the patient consented to this modality of care. The telehealth visit was carried out via a secure, web-based conferencing system. This telemedicine service was a real-time, two-way interactive video and communication between the patient and the provider. All the parties involved were identified and approved by the patient prior to the visit. Any physical exam was assisted by the patient. Unless noted otherwise, the provider was located at their usual clinic location , and the patient was at their place of residence. Patient identity was confirmed by having the patient state their name and date of . All communications with the patient (verbal, audiovisual, and written) were documented in the patients medical record per documentation standards.
[2020-03-15] MEDS: Rivaroxaban 10 MG Tab PO SCH (09:52)
[2020-03-15] MEDS: Ferrous Sulfate 325 MG Tab PO SCH ×2 (09:52→17:23)
[2020-03-15] MEDS: atorvaSTATin 10 MG Tab PO SCH (17:23)
[2020-03-16] MEDS: glipiZIDE 5 MG Tab PO SCH (08:13)
[2020-03-16] MEDS: Metoprolol Succinate 50 MG Tab.ER PO SCH (08:14)
[2020-03-16] MEDS: Multivitamin Tab PO SCH (08:14)
[2020-03-16] MEDS: levETIRAcetam 500 MG Tab PO SCH ×2 (08:14→17:54)
[2020-03-16] MEDS: Lisinopril 20 MG Tab PO SCH ×2 (08:14→17:55)
[2020-03-16] MEDS: amLODIPine 5 MG Tab PO SCH (08:15)
[2020-03-16] MEDS: Rivaroxaban 10 MG Tab PO SCH (08:15)
[2020-03-16] MEDS: Ferrous Sulfate 325 MG Tab PO SCH ×2 (08:15→17:54)
[2020-03-16] MEDS: Acetaminophen 500 MG Tab PO SCH (08:15)
[2020-03-16] MEDS ORDERED: Acetaminophen 325 MG Tab PO PRN (09:00)
[2020-03-16] MEDS: atorvaSTATin 10 MG Tab PO SCH (17:55)
[2020-03-17] MEDS: Lisinopril 20 MG Tab PO SCH ×2 (07:56→17:18)
[2020-03-17] MEDS: glipiZIDE 5 MG Tab PO SCH (07:56)
[2020-03-17] MEDS: Multivitamin Tab PO SCH (07:57)
[2020-03-17] MEDS: Metoprolol Succinate 50 MG Tab.ER PO SCH (07:58)
[2020-03-17] MEDS: levETIRAcetam 500 MG Tab PO SCH ×2 (07:58→17:18)
[2020-03-17] MEDS: amLODIPine 5 MG Tab PO SCH (07:59)
[2020-03-17] MEDS: Ferrous Sulfate 325 MG Tab PO SCH ×2 (07:59→17:17)
[2020-03-17] MEDS: Rivaroxaban 10 MG Tab PO SCH (08:00)
[2020-03-17] MEDS: atorvaSTATin 10 MG Tab PO SCH (17:19)
[2020-03-18] MEDS: Multivitamin Tab PO SCH (07:45)
[2020-03-18] MEDS: glipiZIDE 5 MG Tab PO SCH (07:45)
[2020-03-18] MEDS: levETIRAcetam 500 MG Tab PO SCH ×2 (07:46→17:29)
[2020-03-18] MEDS: Lisinopril 20 MG Tab PO SCH ×2 (07:46→17:26)
[2020-03-18] MEDS: Metoprolol Succinate 50 MG Tab.ER PO SCH (07:46)
[2020-03-18] MEDS: Ferrous Sulfate 325 MG Tab PO SCH ×2 (07:47→17:29)
[2020-03-18] MEDS: amLODIPine 5 MG Tab PO SCH (07:47)
[2020-03-18] MEDS: Rivaroxaban 10 MG Tab PO SCH (07:47)
[2020-03-18] MEDS: atorvaSTATin 10 MG Tab PO SCH (17:29)
[2020-03-19] MEDS: glipiZIDE 5 MG Tab PO SCH (08:17)
[2020-03-19] MEDS: Ferrous Sulfate 325 MG Tab PO SCH ×2 (08:17→17:26)
[2020-03-19] MEDS: Rivaroxaban 10 MG Tab PO SCH (08:17)
[2020-03-19] MEDS: Lisinopril 20 MG Tab PO SCH ×2 (08:17→17:27)
[2020-03-19] MEDS: Metoprolol Succinate 50 MG Tab.ER PO SCH (08:17)
[2020-03-19] MEDS: amLODIPine 5 MG Tab PO SCH (08:18)
[2020-03-19] MEDS: Multivitamin Tab PO SCH (08:18)
[2020-03-19] MEDS: levETIRAcetam 500 MG Tab PO SCH ×2 (08:18→17:26)
[2020-03-19] MEDS: atorvaSTATin 10 MG Tab PO SCH (17:27)
[2020-03-20] MEDS: Metoprolol Succinate 50 MG Tab.ER PO SCH (08:28)
[2020-03-20] MEDS: glipiZIDE 5 MG Tab PO SCH (08:28)
[2020-03-20] MEDS: Ferrous Sulfate 325 MG Tab PO SCH ×2 (08:29→17:15)
[2020-03-20] MEDS: Rivaroxaban 10 MG Tab PO SCH (08:29)
[2020-03-20] MEDS: Multivitamin Tab PO SCH (08:29)
[2020-03-20] MEDS: levETIRAcetam 500 MG Tab PO SCH ×2 (08:29→17:15)
[2020-03-20] MEDS: amLODIPine 5 MG Tab PO SCH (08:29)
[2020-03-20] MEDS: Lisinopril 20 MG Tab PO SCH ×2 (08:30→17:15)
[2020-03-20] MEDS: atorvaSTATin 10 MG Tab PO SCH (17:15)
[2020-03-21] MEDS: amLODIPine 5 MG Tab PO SCH (08:19)
[2020-03-21] MEDS: Ferrous Sulfate 325 MG Tab PO SCH ×2 (08:19→18:07)
[2020-03-21] MEDS: Rivaroxaban 10 MG Tab PO SCH (08:19)
[2020-03-21] MEDS: Multivitamin Tab PO SCH (08:20)
[2020-03-21] MEDS: Metoprolol Succinate 50 MG Tab.ER PO SCH (08:20)
[2020-03-21] MEDS: glipiZIDE 5 MG Tab PO SCH (08:20)
[2020-03-21] MEDS: levETIRAcetam 500 MG Tab PO SCH ×2 (08:21→18:07)
[2020-03-21] MEDS: Lisinopril 20 MG Tab PO SCH ×2 (08:21→18:07)
[2020-03-21] MEDS: atorvaSTATin 10 MG Tab PO SCH (18:07)
[2020-03-22] MEDS: glipiZIDE 5 MG Tab PO SCH (08:50)
[2020-03-22] MEDS: Multivitamin Tab PO SCH (08:50)
[2020-03-22] MEDS: levETIRAcetam 500 MG Tab PO SCH ×2 (08:50→17:32)
[2020-03-22] MEDS: Ferrous Sulfate 325 MG Tab PO SCH ×2 (08:50→17:32)
[2020-03-22] MEDS: Rivaroxaban 10 MG Tab PO SCH (08:50)
[2020-03-22] MEDS: amLODIPine 5 MG Tab PO SCH (09:19)
[2020-03-22] MEDS: Lisinopril 20 MG Tab PO SCH ×2 (09:19→18:10)
[2020-03-22] MEDS: Metoprolol Succinate 50 MG Tab.ER PO SCH (09:20)
[2020-03-22] MEDS: atorvaSTATin 10 MG Tab PO SCH (17:32)
[2020-03-23] MEDS: levETIRAcetam 500 MG Tab PO SCH ×2 (08:25→17:47)
[2020-03-23] MEDS: Multivitamin Tab PO SCH (08:25)
[2020-03-23] MEDS: amLODIPine 5 MG Tab PO SCH (08:25)
[2020-03-23] MEDS: Rivaroxaban 10 MG Tab PO SCH (08:25)
[2020-03-23] MEDS: Lisinopril 20 MG Tab PO SCH ×2 (08:25→17:48)
[2020-03-23] MEDS: glipiZIDE 5 MG Tab PO SCH (08:25)
[2020-03-23] MEDS: Metoprolol Succinate 50 MG Tab.ER PO SCH (08:25)
[2020-03-23] MEDS: Ferrous Sulfate 325 MG Tab PO SCH ×2 (08:26→17:47)
[2020-03-23] MEDS: atorvaSTATin 10 MG Tab PO SCH (17:47)
[2020-03-24] MEDS: glipiZIDE 5 MG Tab PO SCH (07:41)
[2020-03-24] MEDS: Metoprolol Succinate 50 MG Tab.ER PO SCH (07:41)
[2020-03-24] MEDS: Lisinopril 20 MG Tab PO SCH ×2 (07:41→17:23)
[2020-03-24] MEDS: Multivitamin Tab PO SCH (07:42)
[2020-03-24] MEDS: levETIRAcetam 500 MG Tab PO SCH ×2 (07:42→17:23)
[2020-03-24] MEDS: amLODIPine 5 MG Tab PO SCH (07:42)
[2020-03-24] MEDS: Ferrous Sulfate 325 MG Tab PO SCH ×2 (07:42→17:23)
[2020-03-24] MEDS: Rivaroxaban 10 MG Tab PO SCH (07:42)
[2020-03-24] MEDS: atorvaSTATin 10 MG Tab PO SCH (17:22)
[2020-03-25] MEDS: glipiZIDE 5 MG Tab PO SCH (09:11)
[2020-03-25] MEDS: levETIRAcetam 500 MG Tab PO SCH ×2 (09:11→17:12)
[2020-03-25] MEDS: amLODIPine 5 MG Tab PO SCH (09:12)
[2020-03-25] MEDS: Multivitamin Tab PO SCH (09:12)
[2020-03-25] MEDS: Lisinopril 20 MG Tab PO SCH ×2 (09:15→17:12)
[2020-03-25] MEDS: Metoprolol Succinate 50 MG Tab.ER PO SCH (09:15)
[2020-03-25] MEDS: Ferrous Sulfate 325 MG Tab PO SCH ×2 (09:16→17:12)
[2020-03-25] MEDS: Rivaroxaban 10 MG Tab PO SCH (09:16)
[2020-03-25] MEDS: atorvaSTATin 10 MG Tab PO SCH (17:12)
[2020-03-26] MEDS: levETIRAcetam 500 MG Tab PO SCH ×2 (07:45→17:34)
[2020-03-26] MEDS: glipiZIDE 5 MG Tab PO SCH (07:45)
[2020-03-26] MEDS: Metoprolol Succinate 50 MG Tab.ER PO SCH (07:45)
[2020-03-26] MEDS: Multivitamin Tab PO SCH (07:45)
[2020-03-26] MEDS: Rivaroxaban 10 MG Tab PO SCH (07:45)
[2020-03-26] MEDS: Ferrous Sulfate 325 MG Tab PO SCH ×2 (07:45→17:34)
[2020-03-26] MEDS: amLODIPine 5 MG Tab PO SCH (07:46)
[2020-03-26] MEDS: Lisinopril 20 MG Tab PO SCH ×2 (07:46→17:35)
[2020-03-26] MEDS: atorvaSTATin 10 MG Tab PO SCH (17:34)
[2020-03-27] MEDS: levETIRAcetam 500 MG Tab PO SCH ×2 (07:25→17:25)
[2020-03-27] MEDS: Metoprolol Succinate 50 MG Tab.ER PO SCH (07:25)
[2020-03-27] MEDS: amLODIPine 5 MG Tab PO SCH (07:25)
[2020-03-27] MEDS: Rivaroxaban 10 MG Tab PO SCH (07:26)
[2020-03-27] MEDS: Ferrous Sulfate 325 MG Tab PO SCH ×2 (07:26→17:26)
[2020-03-27] MEDS: glipiZIDE 5 MG Tab PO SCH (07:26)
[2020-03-27] MEDS: Lisinopril 20 MG Tab PO SCH (07:26)
[2020-03-27] MEDS: Multivitamin Tab PO SCH (07:26)
--- NOTE | 2020-03-27 12:58 | PCM.PN ---
- General Info Date of Service: 03/27/20 Admission Dx/Problem (Free Text): Admission Diagnosis/Problem Admission Diagnosis/Problem Weakness Functional Status: Reports: Pain Controlled, Tolerating Diet, Ambulating (With assistance), Urinating, Incentive Spirometry. Denies: New Symptoms Pain Score: 0 - Review of Systems General: Reports: Weakness (Stable left hemiparesis). Denies: Fever, Fatigue, Malaise, Chills, Night Sweats, Appetite (Good) HEENT: Reports: Other ([place]) Pulmonary: Reports: No Symptoms. Denies: Shortness of Breath, Pleuritic Chest Pain, Cough, Sputum, Hemoptysis, Wheezing Cardiovascular: Reports: No Symptoms. Denies: Chest Pain, Palpitations, Dyspnea on Exertion, Orthopnea, Edema, Lightheadedness Gastrointestinal: Reports: No Symptoms. Denies: Abdominal Pain, Constipation, Decreased Appetite, Diarrhea, Difficulty Swallowing, Flatus, Hematochezia, Melena, Nausea, Vomiting Genitourinary: Reports: No Symptoms. Denies: Dysuria, Frequency, Burning, Pain , Urgency, Hematuria, Flank Pain Musculoskeletal: Reports: Leg Pain (Borderline). Denies: Neck Pain, Shoulder Pain, Arm Pain, Hand Pain, Back Pain, Foot Pain, Joint Pain, Joint Swelling Skin: Reports: No Symptoms. Denies: Diaphoresis, Bruising Neurological: Reports: Pre-Existing Deficit (Stable left hemiparesis), Difficulty Walking, Weakness (As above). Denies: Confusion, Seizure, Trouble Speaking Psychiatric: Reports: No Symptoms. Denies: Confusion, Depression, Anxiety, Agitation, Cravings, Hallucinations - Patient Data Vitals - Most Recent: Last Vital Signs Temp 36.5 C 03/27/20 08:00 Pulse 54 L 03/27/20 08:00 Resp 16 03/27/20 08:00 BP 129/61 03/27/20 08:00 Pulse Ox 100 03/27/20 08:00 Weight - Most Recent: 66.361 kg I&O - Last 24 Hours: Intake & Output 03/26/20 03/27/20 03/27/20 22:59 06:59 14:59 Intake Total 240 240 Balance 240 240 Lab Results Last 24 Hours: Laboratory Results - last 24 hr 03/27/20 03/27/20 Range/Units 07:05 07:05 WBC 5.3 (4.0-10.2) K/uL RBC 2.94 L (4.33-5.41) M/uL Hgb 8.6 L (13.1-16.8) g/dL Hct 27.6 L (39.0-49.0) % MCV 93.9 D (84.0-98.0) fL MCH 29.3 (28.2-33.3) pg MCHC 31.2 L (31.7-36.0) g/dL RDW 12.8 (11.2-14.1) % Plt Count 331 D (150-350) K/uL Neut % (Auto) 53.3 (45.0-80.0) % Lymph % (Auto) 26.4 (10.0-50.0) % [place] % (Auto) 7.5 (2.0-14.0) % Eos % (Auto) 10.9 H (0.0-5.0) % Baso % (Auto) 1.9 (0.0-2.0) % Neut # (Auto) 2.82 (1.40-7.00) K/uL Lymph # (Auto) 1.40 (0.50-3.50) K/uL [place] # (Auto) 0.40 (0.00-1.00) K/uL Eos # (Auto) 0.58 H (0.00-0.50) K/uL Baso # (Auto) 0.10 (0.00-0.20) K/uL Sodium 141 (136-145) mmol/L Potassium 5.1 (3.5-5.1) mmol/L Chloride 109 H (98-107) mmol/L Carbon Dioxide 23.4 (21.0-32.0) mmol/L BUN 60 H D (7-18) mg/dL Creatinine 1.71 H (0.51-1.17) mg/dL Est Cr Clr Drug Dosing 36.11 mL/min Estimated GFR (MDRD) 39 mL/min Glucose 92 (74-106) mg/dL Calcium 8.7 (8.5-10.1) mg/dL Total Bilirubin 0.3 (0.2-1.0) mg/dL AST 22 (15-37) U/L ALT 22 (12-78) U/L Alkaline Phosphatase 111 (46-116) IU/L Total Protein 6.4 (6.4-8.2) g/dL Albumin 3.0 L (3.4-5.0) g/dL Med Orders - Current: Current Medications Acetaminophen (Tylenol) 650 mg PO Q4H PRN PRN Reason: Pain Amlodipine Besylate (Norvasc) 5 mg PO DAILY [facility] Last Admin: 03/27/20 07:25 Dose: 5 mg Atorvastatin Calcium (Lipitor) 10 mg PO DAILY@1800 [facility] Last Admin: 03/26/20 17:34 Dose: 10 mg Bisacodyl (Dulcolax) 5 mg PO DAILY PRN PRN Reason: Constipation Ferrous Sulfate (Ferrous Sulfate) 325 mg PO BIDMEALS [facility] Last Admin: 03/27/20 07:26 Dose: 325 mg Glipizide (Glucotrol) 5 mg PO ACBREAKFAST [facility] Last Admin: 03/27/20 07:26 Dose: 5 mg Levetiracetam (Keppra) 500 mg PO BID [facility] Last Admin: 03/27/20 07:25 Dose: 500 mg Lisinopril (Prinivil) 10 mg PO QPM [facility] Metoprolol Succinate (Toprol Xl) 50 mg PO DAILY [facility] Last Admin: 03/27/20 07:25 Dose: 50 mg Multivitamins/Minerals/Vitamin C (Tab-A-Varun) 1 tab PO DAILY [facility] Last Admin: 03/27/20 07:26 Dose: 1 tab Ondansetron HCl (Zofran Odt) 4 mg PO Q6H PRN PRN Reason: Nausea/Vomiting Rivaroxaban (Xarelto) 10 mg PO DAILY [facility] Last Admin: 03/27/20 07:26 Dose: 10 mg Temazepam (Restoril) 15 mg PO BEDTIME PRN PRN Reason: Sleep Discontinued Medications Acetaminophen (Tylenol Extra Strength) 500 mg PO QID [facility] Last Admin: 03/16/20 08:15 Dose: Not Given Lisinopril (Prinivil) 10 mg PO BID [facility] Last Admin: 03/27/20 07:26 Dose: 10 mg Sepsis Event Note - Evaluation Sepsis Screening Result: No Definite Risk - Focused Exam Vital Signs: Vital Signs Temp Pulse Pulse Resp BP BP Pulse Ox 03/27/20 08:00 36.5 C 54 L 16 129/61 100 05/03/20 07:26 129/61 03/27/20 07:25 54 L 129/61 Date Exam was Performed: 03/27/20 Time Exam was Performed: 13:03 - Problem List & Annotations (1) Femur fracture, left SNOMED Code(s): 13214180, 66858341498562457 Code(s): S72.92XA - UNSP FRACTURE OF LEFT FEMUR, INIT ENCNTR FOR CLOSED FRACTURE Status: Acute Priority: High Current Visit: Yes Onset Date: Qualifiers: Encounter type: initial encounter Femur location: neck, unspecified portion Fracture type: closed Qualified Code(s): S72.002A - Fracture of unspecified part of neck of left femur, initial encounter for closed fracture Annotation/Comment:: Note ORIF on 03/09/20 with patient admitted to swing bed for PT, OT, strengthening, etc.. Postoperative course complicated by anemia with blood transfusion on 03/11 as per admission H&P. (2) Cerebral hemorrhage SNOMED Code(s): 241821509 Code(s): I61.9 - NONTRAUMATIC INTRACEREBRAL HEMORRHAGE, UNSPECIFIED Status : Chronic Priority: Medium Current Visit: Yes Onset Date: 10/02/17 Annotation/Comment:: Stable left hemiparesis, dysphagia, etc. by patient history with no recent seizures, etc. (3) Hypertension SNOMED Code(s): 09201363 Code(s): I10 - ESSENTIAL (PRIMARY) HYPERTENSION Status: Chronic Priority : Medium Current Visit: Yes Qualifiers: Hypertension type: essential hypertension Qualified Code(s): I10 - Essential (primary) hypertension Annotation/Comment:: Stable by history and during his swing bed care. Note progressive renal insufficiency with patient's lisinopril to be decreased to a every afternoon basis. Vitals to be increased to an every shift basis. (4) Hyponatremia SNOMED Code(s): 28917652 Code(s): E87.1 - HYPO-OSMOLALITY AND HYPONATREMIA Status: Acute Priority : Medium Current Visit: Yes Onset Date: ~03/11/20 Annotation/Comment:: Resolved on 03/15. Continue to observe closely. (5) Renal insufficiency SNOMED Code(s): 664576130, 607686238 Code(s): N28.9 - DISORDER OF KIDNEY AND URETER, UNSPECIFIED Status: Chronic Priority: Medium Current Visit: Yes Annotation/Comment:: Progressive renal insufficiency as above. Decreased lisinopril therapy on 03/27 with repeat blood work on 04/01 (6) Seizure disorder SNOMED Code(s): 966387425 Code(s): G40.909 - EPILEPSY, UNSP, NOT INTRACTABLE, WITHOUT STATUS EPILEPTICUS Status: Chronic Priority: Medium Current Visit: Yes Annotation/Comment:: As above (7) Osteoarthritis SNOMED Code(s): 884147989 Code(s): M19.90 - UNSPECIFIED OSTEOARTHRITIS, UNSPECIFIED SITE Status: Chronic Priority: Medium Current Visit: Yes Qualifiers: Osteoarthritis location: multiple joints Osteoarthritis type: primary Qualified Code(s): M89.49 - Other hypertrophic osteoarthropathy, multiple sites Annotation/Comment:: Otherwise stable by history (8) Peptic reflux disease SNOMED Code(s): 535863090 Code(s): K21.9 - GASTRO-ESOPHAGEAL REFLUX DISEASE WITHOUT ESOPHAGITIS Status: Chronic Priority: Medium Current Visit: Yes Annotation/Comment:: Stable by history (9) COPD (chronic obstructive pulmonary disease) SNOMED Code(s): 75842599 Code(s): J44.9 - CHRONIC OBSTRUCTIVE PULMONARY DISEASE, UNSPECIFIED Status : Chronic Current Visit: Yes Onset Date: ~03/15/20 Qualifiers: COPD type: emphysema Emphysema type: panlobular Qualified Code(s): J43.1 - Panlobular emphysema Annotation/Comment:: COPD by chest x-ray. Observe for now. No current medical therapy required. - Problem List Review Problem List Initiated/Reviewed/Updated: Yes - My Orders Last 24 Hours: My Active Orders 03/27/20 12:52 Vital Signs [RC] PER UNIT ROUTINE 03/28/20 18:00 lisinopriL [Prinivil] 10 mg PO QPM - Assessment Assessment:: As above - Plan Plan:: As above. Extensive precautions were given to the patient, who is in agreement with the treatment plan. PT and OT have been ordered with continued swing bed care until the patient will be released to home on home health per their instructions.
[2020-03-27] MEDS: atorvaSTATin 10 MG Tab PO SCH (17:25)
[2020-03-28] MEDS: glipiZIDE 5 MG Tab PO SCH (08:28)
[2020-03-28] MEDS: amLODIPine 5 MG Tab PO SCH (08:28)
[2020-03-28] MEDS: Ferrous Sulfate 325 MG Tab PO SCH ×2 (08:29→18:19)
[2020-03-28] MEDS: levETIRAcetam 500 MG Tab PO SCH ×2 (08:29→18:19)
[2020-03-28] MEDS: Metoprolol Succinate 50 MG Tab.ER PO SCH (08:29)
[2020-03-28] MEDS: Rivaroxaban 10 MG Tab PO SCH (08:29)
[2020-03-28] MEDS: Multivitamin Tab PO SCH (08:30)
[2020-03-28] MEDS: atorvaSTATin 10 MG Tab PO SCH (18:19)
[2020-03-28] MEDS: Lisinopril 10 MG Tab PO SCH (18:19)
[2020-03-29] MEDS: Multivitamin Tab PO SCH (07:34)
[2020-03-29] MEDS: Ferrous Sulfate 325 MG Tab PO SCH ×2 (07:34→17:22)
[2020-03-29] MEDS: levETIRAcetam 500 MG Tab PO SCH ×2 (07:34→17:22)
[2020-03-29] MEDS: Rivaroxaban 10 MG Tab PO SCH (07:34)
[2020-03-29] MEDS: glipiZIDE 5 MG Tab PO SCH (07:34)
[2020-03-29] MEDS: amLODIPine 5 MG Tab PO SCH (07:34)
[2020-03-29] MEDS: Metoprolol Succinate 50 MG Tab.ER PO SCH (07:35)
[2020-03-29] MEDS: atorvaSTATin 10 MG Tab PO SCH (17:22)
[2020-03-29] MEDS: Lisinopril 10 MG Tab PO SCH (17:22)
[2020-03-30] MEDS: Multivitamin Tab PO SCH (08:48)
[2020-03-30] MEDS: Rivaroxaban 10 MG Tab PO SCH (08:48)
[2020-03-30] MEDS: glipiZIDE 5 MG Tab PO SCH (08:48)
[2020-03-30] MEDS: Ferrous Sulfate 325 MG Tab PO SCH ×2 (08:48→17:22)
[2020-03-30] MEDS: levETIRAcetam 500 MG Tab PO SCH ×2 (08:48→17:21)
[2020-03-30] MEDS: amLODIPine 5 MG Tab PO SCH (09:02)
[2020-03-30] MEDS: Metoprolol Succinate 50 MG Tab.ER PO SCH (09:02)
[2020-03-30] MEDS: atorvaSTATin 10 MG Tab PO SCH (17:21)
[2020-03-30] MEDS: Lisinopril 10 MG Tab PO SCH (17:21)
[2020-03-31] MEDS: Ferrous Sulfate 325 MG Tab PO SCH ×2 (07:44→17:11)
[2020-03-31] MEDS: levETIRAcetam 500 MG Tab PO SCH ×2 (07:44→17:11)
[2020-03-31] MEDS: Rivaroxaban 10 MG Tab PO SCH (07:44)
[2020-03-31] MEDS: glipiZIDE 5 MG Tab PO SCH (07:44)
[2020-03-31] MEDS: Multivitamin Tab PO SCH (07:44)
[2020-03-31] MEDS: amLODIPine 5 MG Tab PO SCH (07:45)
[2020-03-31] MEDS: Metoprolol Succinate 50 MG Tab.ER PO SCH (07:45)
[2020-03-31] MEDS: Lisinopril 10 MG Tab PO SCH (17:11)
[2020-03-31] MEDS: atorvaSTATin 10 MG Tab PO SCH (17:11)
[2020-04-01] MEDS: Multivitamin Tab PO SCH (07:24)
[2020-04-01] MEDS: glipiZIDE 5 MG Tab PO SCH (07:24)
[2020-04-01] MEDS: levETIRAcetam 500 MG Tab PO SCH ×2 (07:24→18:04)
[2020-04-01] MEDS: Metoprolol Succinate 50 MG Tab.ER PO SCH (07:24)
[2020-04-01] MEDS: Rivaroxaban 10 MG Tab PO SCH (07:24)
[2020-04-01] MEDS: amLODIPine 5 MG Tab PO SCH (07:25)
[2020-04-01] MEDS: Ferrous Sulfate 325 MG Tab PO SCH ×2 (07:25→18:04)
[2020-04-01] MEDS: Lisinopril 10 MG Tab PO SCH (18:04)
[2020-04-01] MEDS: atorvaSTATin 10 MG Tab PO SCH (18:05)
[2020-04-02] MEDS: levETIRAcetam 500 MG Tab PO SCH ×2 (08:40→17:33)
[2020-04-02] MEDS: Rivaroxaban 10 MG Tab PO SCH (08:40)
[2020-04-02] MEDS: Ferrous Sulfate 325 MG Tab PO SCH ×2 (08:41→17:32)
[2020-04-02] MEDS: Metoprolol Succinate 50 MG Tab.ER PO SCH (08:41)
[2020-04-02] MEDS: glipiZIDE 5 MG Tab PO SCH (08:42)
[2020-04-02] MEDS: Multivitamin Tab PO SCH (08:43)
[2020-04-02] MEDS: amLODIPine 5 MG Tab PO SCH (08:44)
[2020-04-02] MEDS: Lisinopril 10 MG Tab PO SCH (17:33)
[2020-04-02] MEDS: atorvaSTATin 10 MG Tab PO SCH (17:33)
[2020-04-03] MEDS: Metoprolol Succinate 50 MG Tab.ER PO SCH (08:04)
[2020-04-03] MEDS: Rivaroxaban 10 MG Tab PO SCH (08:04)
[2020-04-03] MEDS: amLODIPine 5 MG Tab PO SCH (08:04)
[2020-04-03] MEDS: Multivitamin Tab PO SCH (08:05)
[2020-04-03] MEDS: levETIRAcetam 500 MG Tab PO SCH ×2 (08:05→17:36)
[2020-04-03] MEDS: Ferrous Sulfate 325 MG Tab PO SCH ×2 (08:05→17:35)
[2020-04-03] MEDS: glipiZIDE 5 MG Tab PO SCH (08:05)
[2020-04-03] MEDS: atorvaSTATin 10 MG Tab PO SCH (17:36)
[2020-04-03] MEDS: Lisinopril 10 MG Tab PO SCH (17:36)
[2020-04-04] MEDS: amLODIPine 5 MG Tab PO SCH (07:51)
[2020-04-04] MEDS: Metoprolol Succinate 50 MG Tab.ER PO SCH (07:51)
[2020-04-04] MEDS: Multivitamin Tab PO SCH (07:51)
[2020-04-04] MEDS: Ferrous Sulfate 325 MG Tab PO SCH ×2 (07:52→17:55)
[2020-04-04] MEDS: Rivaroxaban 10 MG Tab PO SCH (07:52)
[2020-04-04] MEDS: glipiZIDE 5 MG Tab PO SCH (07:52)
[2020-04-04] MEDS: levETIRAcetam 500 MG Tab PO SCH ×2 (07:52→17:55)
[2020-04-04] MEDS: Lisinopril 10 MG Tab PO SCH (17:55)
[2020-04-04] MEDS: atorvaSTATin 10 MG Tab PO SCH (17:55)
[2020-04-05] MEDS: Metoprolol Succinate 50 MG Tab.ER PO SCH (07:38)
[2020-04-05] MEDS: amLODIPine 5 MG Tab PO SCH (07:38)
[2020-04-05] MEDS: Rivaroxaban 10 MG Tab PO SCH (07:38)
[2020-04-05] MEDS: Multivitamin Tab PO SCH (07:38)
[2020-04-05] MEDS: glipiZIDE 5 MG Tab PO SCH (07:38)
[2020-04-05] MEDS: Ferrous Sulfate 325 MG Tab PO SCH ×2 (07:38→17:57)
[2020-04-05] MEDS: levETIRAcetam 500 MG Tab PO SCH ×2 (07:38→17:58)
[2020-04-05] MEDS: atorvaSTATin 10 MG Tab PO SCH (17:58)
[2020-04-05] MEDS: Lisinopril 10 MG Tab PO SCH (17:58)
[2020-04-06] MEDS: amLODIPine 5 MG Tab PO SCH (07:30)
[2020-04-06] MEDS: Ferrous Sulfate 325 MG Tab PO SCH ×2 (07:30→17:15)
[2020-04-06] MEDS: glipiZIDE 5 MG Tab PO SCH (07:30)
[2020-04-06] MEDS: Multivitamin Tab PO SCH (07:30)
[2020-04-06] MEDS: Metoprolol Succinate 50 MG Tab.ER PO SCH (07:30)
[2020-04-06] MEDS: levETIRAcetam 500 MG Tab PO SCH ×2 (07:30→17:16)
[2020-04-06] MEDS: Lisinopril 10 MG Tab PO SCH (17:15)
[2020-04-06] MEDS: atorvaSTATin 10 MG Tab PO SCH (17:15)
[2020-04-07] MEDS: glipiZIDE 5 MG Tab PO SCH (07:31)
[2020-04-07] MEDS: Multivitamin Tab PO SCH (07:32)
[2020-04-07] MEDS: Metoprolol Succinate 50 MG Tab.ER PO SCH (07:32)
[2020-04-07] MEDS: Ferrous Sulfate 325 MG Tab PO SCH ×2 (07:32→17:40)
[2020-04-07] MEDS: levETIRAcetam 500 MG Tab PO SCH ×2 (07:33→17:39)
[2020-04-07] MEDS: amLODIPine 5 MG Tab PO SCH (07:34)
[2020-04-07] MEDS: atorvaSTATin 10 MG Tab PO SCH (17:39)
[2020-04-07] MEDS: Lisinopril 10 MG Tab PO SCH (17:40)
[2020-04-08] MEDS: Ferrous Sulfate 325 MG Tab PO SCH (08:25)
[2020-04-08] MEDS: Multivitamin Tab PO SCH (08:26)
[2020-04-08] MEDS: glipiZIDE 5 MG Tab PO SCH (08:26)
[2020-04-08] MEDS: levETIRAcetam 500 MG Tab PO SCH (08:26)
[2020-04-08] MEDS: Metoprolol Succinate 50 MG Tab.ER PO SCH (08:36)
[2020-04-08] MEDS: amLODIPine 5 MG Tab PO SCH (08:37)
--- NOTE | 2020-04-08 11:40 | PCM.DCSUM1 ---
Discharge Summary - Hospital Course Brief History: Patient admitted to Swing Bed from [place] after undergoing ORIF for left hip fracture. PT/OT and assistance with ADLs provided. Diagnosis: Stroke: No - Discharge Data Discharge Date: 04/08/20 Discharge Disposition: Home, Self-Care 01 Condition: Good - Referral to Home Health Primary Care Physician: PCP None - Discharge Diagnosis/Problem(s) (1) Femur fracture, left SNOMED Code(s): 94711002, [id number] ICD Code: S72.92XA - UNSP FRACTURE OF LEFT FEMUR, INIT ENCNTR FOR CLOSED FRACTURE Status: Acute Priority: High Current Visit: Yes Onset Date: Problem Details: Note ORIF on 03/09/20 with patient admitted to swing bed for PT, OT, strengthening, etc.. Postoperative course complicated by anemia with blood transfusion on 03/11 as per admission H&P. Has been doing well. Released by PT/OT. No anticipated need for home health at this time. Discharge home today. Qualifiers: Encounter type: initial encounter Femur location: neck, unspecified portion Fracture type: closed Qualified Code(s): S72.002A - Fracture of unspecified part of neck of left femur, initial encounter for closed fracture (2) Anemia SNOMED Code(s): 139281414 ICD Code: D64.9 - ANEMIA, UNSPECIFIED Status: Acute Priority: Medium Current Visit: Yes Problem Details: Post-operative blood loss which required transfusion. Hgb has been stable between 8-9.0 during stay. Close follow up with primary provider recommended for continued surveillance and more detailed workup as needed. Normal B12 level. Suspect renal insufficiency is contributing factor. Qualifiers: Anemia type: unspecified type Qualified Code(s): D64.9 - Anemia, unspecified (3) Hypertension SNOMED Code(s): 64808811 ICD Code: I10 - ESSENTIAL (PRIMARY) HYPERTENSION Status: Chronic Priority : Medium Current Visit: Yes Problem Details: Stable by history and during his swing bed care. Note progressive renal insufficiency with patient's lisinopril was decreased to a every afternoon basis. Qualifiers: Hypertension type: essential hypertension Qualified Code(s): I10 - Essential (primary) hypertension (4) Cerebral hemorrhage SNOMED Code(s): 238108101 ICD Code: I61.9 - NONTRAUMATIC INTRACEREBRAL HEMORRHAGE, UNSPECIFIED Status : Chronic Priority: Medium Current Visit: Yes Onset Date: 10/02/17 Problem Details: Stable left hemiparesis, dysphagia, etc. by patient history with no recent seizures, etc. (5) Hyponatremia SNOMED Code(s): 94747924 ICD Code: E87.1 - HYPO-OSMOLALITY AND HYPONATREMIA Status: Acute Priority : Medium Current Visit: Yes Onset Date: ~03/11/20 Problem Details: Resolved on 03/15. (6) Renal insufficiency SNOMED Code(s): 840752797, 884266897 ICD Code: N28.9 - DISORDER OF KIDNEY AND URETER, UNSPECIFIED Status: Chronic Priority: Medium Current Visit: Yes Problem Details: Progressive renal insufficiency as above. Decreased lisinopril therapy on 03/27 with repeat blood work on 04/01 showing Bun 59/Cr 1.76 Recommend follow up with primary provider within the next week. Consult as needed with Nephrology via primary provider. (7) Seizure disorder SNOMED Code(s): 188587174 ICD Code: G40.909 - EPILEPSY, UNSP, NOT INTRACTABLE, WITHOUT STATUS EPILEPTICUS Status: Chronic Priority: Low Current Visit: Yes Problem Details: Stable by history (8) Osteoarthritis SNOMED Code(s): 150072871 ICD Code: M19.90 - UNSPECIFIED OSTEOARTHRITIS, UNSPECIFIED SITE Status: Chronic Priority: Medium Current Visit: Yes Problem Details: Otherwise stable by history Qualifiers: Osteoarthritis location: multiple joints Osteoarthritis type: primary Qualified Code(s): M89.49 - Other hypertrophic osteoarthropathy, multiple sites (9) Peptic reflux disease SNOMED Code(s): 360355207 ICD Code: K21.9 - GASTRO-ESOPHAGEAL REFLUX DISEASE WITHOUT ESOPHAGITIS Status: Chronic Priority: Medium Current Visit: Yes Problem Details: Stable by history (10) COPD (chronic obstructive pulmonary disease) SNOMED Code(s): 90817438 ICD Code: J44.9 - CHRONIC OBSTRUCTIVE PULMONARY DISEASE, UNSPECIFIED Status : Chronic Priority: Low Current Visit: Yes Onset Date: ~03/15/20 Problem Details: COPD by chest x-ray. No current medical therapy required. Qualifiers: COPD type: emphysema Emphysema type: panlobular Qualified Code(s): J43.1 - Panlobular emphysema - Patient Summary/Data Consults: Consultations 03/14/20 16:34 Consult to Case Management/Assistant District Attorney [CONS] Routine OT Evaluation and Treatment [CONS] Routine PT Evaluation and Treatment [CONS] Routine Hospital Course: Unremarkable hospital course overall. PT and OT worked with patient and do not feel that he needs home health after discharge. - Patient Instructions Diet: Renal Diet, Anti-Inflammatory Activity: As Tolerated Showering/Bathing: May Shower Notify Provider of: Fever, Increased Pain, Swelling and Redness, Drainage Other/Special Instructions: Remember to take your Lisinopril only once a day, not twice a day as previously. See your primary privider within the next 7-10 days. We will try to obtain an appointment for you before you are discharged. Have them recheck your hemoglobin and kidney function. Discuss if you might benefit from being referred to visit with Nephrology to have your meds/diet reviewed and have any appropriate changes suggested. You may also need further workup of the anemia. Follow up otherwise as needed if you develop any new problems/concerns. - Discharge Plan *PRESCRIPTION DRUG MONITORING PROGRAM REVIEWED*: Not Applicable *COPY OF PRESCRIPTION DRUG MONITORING REPORT IN PATIENT [place]: Not Applicable Prescriptions/Med Rec: Ferrous Sulfate 325 mg PO BIDMEALS #60 tablet Home Medications: Home Meds amLODIPine [Norvasc] 5 mg PO DAILY 10/11/17 [History] atorvaSTATin [Lipitor] 10 mg PO 1800 10/11/17 [History] glipiZIDE [Glucotrol] 5 mg PO ACBREAKFAST 10/11/17 [History] levETIRAcetam [Keppra] 500 mg PO BID 10/11/17 [History] Acetaminophen 500 mg PO QID 03/14/20 [History] Metoprolol Succinate 50 mg PO DAILY 03/14/20 [History] Multivitamin with Minerals [Multivitamins with Minerals] 1 each PO DAILY [History] Rivaroxaban [Xarelto] 10 mg PO DAILY 03/14/20 [History] Ferrous Sulfate 325 mg PO BIDMEALS #60 tablet 04/08/20 [Rx] lisinopriL [Prinivil] 10 mg PO QPM tablet 04/08/20 [Rx] - Discharge Summary/Plan Comment DC Time >30 min.: Yes (waiting for ride) - General Info Date of Service: 04/08/20 Admission Dx/Problem (Free Text: Admission Diagnosis/Problem Patient admitted to Swing Bed after undergoing ORIF s/p left hip fracture. Transferred from [facility]. PT/OT, assistance with ADLs. Subjective Update: Patient has no acute complaints. Feels good overall. Wishes to go home. Functional Status: Reports: Pain Controlled, Tolerating Diet. Denies: New Symptoms - Review of Systems General: Denies: Fever, Weakness, Malaise, Chills, Night Sweats HEENT: Reports: Dysphasia (chronic issues secondary to previous stroke. No acute changes.). Denies: Ear Pain, Eye Pain, Headaches, Sinus Congestion, Sore Throat, Rhinitis, Visual Changes Pulmonary: Reports: No Symptoms Cardiovascular: Reports: No Symptoms Gastrointestinal: Reports: No Symptoms Genitourinary: Reports: No Symptoms Musculoskeletal: Reports: Other (no acute changes from baseline) Skin: Reports: No Symptoms Neurological: Reports: Pre-Existing Deficit (left sided weakness), Difficulty Walking (chronic due to previous CVA deficits). Denies: Confusion, Headache, Trouble Speaking, Change in Speech Psychiatric: Reports: No Symptoms - Patient Data Vitals - Most Recent: Last Vital Signs Temp 36.4 C 04/08/20 08:00 Pulse 60 04/08/20 08:36 Resp 16 04/08/20 08:00 BP 139/73 04/08/20 08:37 Pulse Ox 100 04/08/20 08:00 Weight - Most Recent: 67.313 kg I&O - Last 24 hours: Intake & Output 04/07/20 04/08/20 04/08/20 22:59 06:59 14:59 Intake Total 240 240 Balance 240 240 Med Orders - Current: Current Medications Acetaminophen (Tylenol) 650 mg PO Q4H PRN PRN Reason: Pain Amlodipine Besylate (Norvasc) 5 mg PO DAILY [facility] Last Admin: 04/08/20 08:37 Dose: 5 mg Atorvastatin Calcium (Lipitor) 10 mg PO DAILY@1800 [facility] Last Admin: 04/07/20 17:39 Dose: 10 mg Bisacodyl (Dulcolax) 5 mg PO DAILY PRN PRN Reason: Constipation Ferrous Sulfate (Ferrous Sulfate) 325 mg PO BIDMEALS [facility] Last Admin: 04/08/20 08:25 Dose: 325 mg Glipizide (Glucotrol) 5 mg PO ACBREAKFAST [facility] Last Admin: 04/08/20 08:26 Dose: 5 mg Levetiracetam (Keppra) 500 mg PO BID [facility] Last Admin: 04/08/20 08:26 Dose: 500 mg Lisinopril (Prinivil) 10 mg PO QPM [facility] Last Admin: 04/07/20 17:40 Dose: 10 mg Metoprolol Succinate (Toprol Xl) 50 mg PO DAILY [facility] Last Admin: 04/08/20 08:36 Dose: 50 mg Multivitamins/Minerals/Vitamin C (Tab-A-Varun) 1 tab PO DAILY [facility] Last Admin: 04/08/20 08:26 Dose: 1 tab Ondansetron HCl (Zofran Odt) 4 mg PO Q6H PRN PRN Reason: Nausea/Vomiting Temazepam (Restoril) 15 mg PO BEDTIME PRN PRN Reason: Sleep Discontinued Medications Acetaminophen (Tylenol Extra Strength) 500 mg PO QID [facility] Last Admin: 03/16/20 08:15 Dose: Not Given Lisinopril (Prinivil) 10 mg PO BID [facility] Last Admin: 03/27/20 07:26 Dose: 10 mg Rivaroxaban (Xarelto) 10 mg PO DAILY [facility] Stop: 04/05/20 08:01 Last Admin: 04/05/20 07:38 Dose: 10 mg - Exam General: Reports: Alert, Oriented, Cooperative, No Acute Distress HEENT: Reports: Pupils Equal, Pupils Reactive, EOMI, Mucous Membr. Moist/[employer] Neck: Reports: Supple Lungs: Reports: Clear to Auscultation, Normal Respiratory Effort Cardiovascular: Reports: Regular Rate, Regular Rhythm GI/Abdominal Exam: Soft, Non-Tender (Male) Exam: Deferred Rectal (Males) Exam: Deferred Back Exam: Denies: CVA Tenderness (L), CVA Tenderness (R), Muscle Spasm, Paraspinal Tenderness, Vertebral Tenderness Extremities: Non-Tender Skin: Reports: Warm, Dry Neurological: Reports: No New Focal Deficit Psy/Mental Status: Reports: Alert, Normal Affect, Normal Mood
== END 2020-04-08 13:25 | disposition home or self-care (01) | DRG 559 ==
LOC: LL.MS 16:07 → UNDOADMIN 16:07 → LL.MS 16:34
PROVIDERS: ADMIT Family Medicine; ATTEND Family Medicine
DX: S72.002D Fracture of unspecified part of neck of left femur, subsequent encounter for closed fracture with routine healing (principal); I61.9 Nontraumatic intracerebral hemorrhage, unspecified; E87.1 Hypo-osmolality and hyponatremia; G81.94 Hemiplegia, unspecified affecting left nondominant side; I10 Essential (primary) hypertension; N28.9 Disorder of kidney and ureter, unspecified; G40.909 Epilepsy, unspecified, not intractable, without status epilepticus; M89.49 Other hypertrophic osteoarthropathy, multiple sites; K21.9 Gastro-esophageal reflux disease without esophagitis; J43.1 Panlobular emphysema; D64.9 Anemia, unspecified; R13.10 Dysphagia, unspecified; Z79.899 Other long term (current) drug therapy
CPT/HCPCS: 36415; 71045; 80048; 80053; 82607; 82962; 83036; 83735; 84443; 84550; 85025; 85610; 85730; 93005; 97110-GO; 97110-GP; 97140-GO; 97162-GP; 97165-GO; 97530-GO; 97530-GP; 97535-GO; A9270-GY

== ENCOUNTER 2023-03-07 17:07 | Emergency (ER) | payer MEDICARE, OTHER ==
[2023-03-07] MEDS ORDERED: Doxycycline Monohydrate 100 MG Cap PO ONE (18:00)
[2023-03-07] MEDS ORDERED: Bacitracin/Neomycin/Polymyxin B Oint 0.9 GM U/D Packet TOP ONE (18:07)
[2023-03-07] MEDS ORDERED: Take Home: Doxycycline 100 MG Tab, 4 Tab Pack PO ONE (18:10)
== END 2023-03-07 19:05 | disposition home or self-care (01) ==
LOC: LL.ED 17:07
DX: L03.031 Cellulitis of right toe (principal); I12.9 Hypertensive chronic kidney disease with stage 1 through stage 4 chronic kidney disease, or unspecified chronic kidney disease; E11.22 Type 2 diabetes mellitus with diabetic chronic kidney disease; N18.9 Chronic kidney disease, unspecified; E78.00 Pure hypercholesterolemia, unspecified; N40.0 Benign prostatic hyperplasia without lower urinary tract symptoms; Z79.899 Other long term (current) drug therapy; Z86.16 Personal history of COVID-19
CPT/HCPCS: 36415; 85652; 99283; 99284; A9270-GY